=== PATIENT | female | born 1985 | race African-American/Black ===

== ENCOUNTER 2024-11-29 20:12 | Inpatient (IN) | payer OTHER ==
[2024-11-29 23:22] LABS: #Basophils 0.03 10x3/uL (0.0-0.2); #Eosinophils 0.16 10x3/uL (0.0-0.7); #Monocytes 0.40 10x3/uL (0.11-0.59); #Neutrophils 4.89 10x3/uL (1.40-6.50); %Basophils 0.4 % (0.0-1.0); %Eosinophils 2.0 % (0.0-10.0); %Lymphocytes 29.7 % (21.0-51.0); %Monocytes 5.1 % (0.0-10.0); %Neutrophils 62.5 % (42.0-75.0); Hematocrit 34.0 % (36.0-47.0); Hemoglobin 9.7 g/dL (12.0-16.0); Mean Corpuscular Hemoglobin 23.8 pg (27.0-31.0); Mean Corpuscular Volume 83.3 fL (78.0-98.0); Platelet Count 336 10x3/uL (130-400); Red Blood Cell (RBC) Count 4.08 mill/uL (4.20-5.40); White Blood Cell (WBC) Count 7.82 10x3/uL (4.8-10.8)
[2024-11-29 23:26] LABS: INR-International Normal Ratio 1.0; PTT 28.9 sec (22.9-36.1); Prothrombin Time 13.5 sec (12.0-14.7)
[2024-11-29 23:27] LABS: ALT (SGPT) 8 U/L (Less than 34); AST (SGOT) 40 U/L (11-34); Albumin 3.3 g/dL (3.1-4.5); Alkaline Phosphatase 52 U/L (40-110); Anion Gap 16 mmol/L (10-20); BUN (Urea Nitrogen) 9 mg/dL (7.0-18.7); Bilirubin, Total 0.2 mg/dL (0.3-1.2); Calc. Creatinine Clearance 0 mL/min (70-130); Calcium 8.5 mg/dL (7.8-10.44); Carbon Dioxide 23 mmol/L (22-29); Chloride 108 mmol/L (98-107); Globulin 4.1 g/dL (2.4-3.5); Glucose 90 mg/dL (70-105); Potassium 4.6 mmol/L (3.5-5.1); Sodium 142 mmol/L (136-145)
[2024-11-29 23:29] LABS: D-Dimer Test 0.51 mcg/mL (0.27-0.43)
[2024-11-30 00:17] LABS: Platelet Adequacy Comment Platelets Normal; Polychromasia SLIGHT = 2-3 cells HPF (0-2)
[2024-11-30] MEDS ORDERED: Acetaminophen 500 MG TAB ONE (00:17)
[2024-11-30] MEDS ORDERED: Ondansetron PF 4 MG/2 ML Vial ONE (00:18)
[2024-11-30] MEDS ORDERED: Acetaminophen 325 MG TAB PO PRN (01:30)
[2024-11-30] MEDS ORDERED: Ondansetron PF 4 MG/2 ML Vial IVP PRN (01:30)
[2024-11-30 04:27] LABS: #Basophils Less than 0.03 10x3/uL (0.0-0.2); #Eosinophils 0.15 10x3/uL (0.0-0.7); #Monocytes 0.36 10x3/uL (0.11-0.59); #Neutrophils 4.20 10x3/uL (1.40-6.50); %Basophils 0.3 % (0.0-1.0); %Eosinophils 2.1 % (0.0-10.0); %Lymphocytes 33.5 % (21.0-51.0); %Monocytes 5.0 % (0.0-10.0); %Neutrophils 59.0 % (42.0-75.0); Hematocrit 33.3 % (36.0-47.0); Hemoglobin 9.5 g/dL (12.0-16.0); Mean Corpuscular Hemoglobin 23.8 pg (27.0-31.0); Mean Corpuscular Volume 83.5 fL (78.0-98.0); Platelet Count 317 10x3/uL (130-400); Red Blood Cell (RBC) Count 3.99 mill/uL (4.20-5.40); White Blood Cell (WBC) Count 7.13 10x3/uL (4.8-10.8)
[2024-11-30 04:37] LABS: Anion Gap 13 mmol/L (10-20); BUN (Urea Nitrogen) 9 mg/dL (7.0-18.7); Calc. Creatinine Clearance 0 mL/min (70-130); Calcium 8.1 mg/dL (7.8-10.44); Carbon Dioxide 24 mmol/L (22-29); Cardiac Risk 3.8 (Less than 4.5); Chloride 109 mmol/L (98-107); Cholesterol 150 mg/dl (< 200 Desired); Glucose 92 mg/dL (70-105); HDL Cholesterol 39 mg/dL (>60 Neg Risk); LDL Cholesterol, Calculated 100 mg/dL; Potassium 3.5 mmol/L (3.5-5.1); Sodium 142 mmol/L (136-145); Triglycerides 57 mg/dL (Less than 150)
[2024-11-30 05:24] VITALS: BMI 64.0
[2024-11-30] MEDS ORDERED: Acetaminophen/Codeine 30-300mg Tablet ONE (08:11)
[2024-11-30] MEDS ORDERED: Enoxaparin 40 MG (0.4 mL) SYRINGE ONE (08:11)
[2024-11-30] MEDS ORDERED: Famotidine/PF 20 mg/2ml Vial ONE (08:12)
[2024-11-30] MEDS: Acetaminophen/Codeine 30-300mg Tablet PO PRN (08:14)
[2024-11-30] MEDS: Famotidine/PF 20 mg/2ml Vial SLOW IVP SCH (08:16)
[2024-11-30] MEDS: Enoxaparin 40 MG (0.4 mL) SYRINGE SC SCH (08:16)
[2024-12-01] MEDS: lamoTRIgine 25 MG TAB PO SCH (09:00)
[2024-12-01] MEDS: Divalproex Sodium 125 mg Sprinkle Capsule PO SCH (12:00)
[2024-12-01] MEDS: Ketorolac Tromethamine 30 MG (1 mL) VIAL IVP SCH (18:20)
[2024-12-02 05:41] LABS: Anion Gap 13 mmol/L (10-20); BUN (Urea Nitrogen) 11 mg/dL (7.0-18.7); Calc. Creatinine Clearance 365 mL/min (70-130); Calcium 8.5 mg/dL (7.8-10.44); Carbon Dioxide 27 mmol/L (22-29); Chloride 105 mmol/L (98-107); Glucose 89 mg/dL (70-105); Potassium 4.0 mmol/L (3.5-5.1); Sodium 141 mmol/L (136-145)
[2024-12-02 07:04] LABS: Hematocrit 33.9 % (36.0-47.0); Hemoglobin 9.9 g/dL (12.0-16.0); Mean Corpuscular Hemoglobin 23.9 pg (27.0-31.0); Mean Corpuscular Volume 81.7 fL (78.0-98.0); Platelet Count 301 10x3/uL (130-400); Red Blood Cell (RBC) Count 4.15 mill/uL (4.20-5.40); White Blood Cell (WBC) Count 5.44 10x3/uL (4.8-10.8)
[2024-12-02 07:31] LABS: #Basophils 0.03 10x3/uL (0.0-0.2); #Eosinophils 0.08 10x3/uL (0.0-0.7); #Monocytes 0.33 10x3/uL (0.11-0.59); #Neutrophils 3.52 10x3/uL (1.40-6.50); %Basophils 0.6 % (0.0-1.0); %Eosinophils 1.5 % (0.0-10.0); %Lymphocytes 27.2 % (21.0-51.0); %Monocytes 6.1 % (0.0-10.0); %Neutrophils 64.4 % (42.0-75.0)
[2024-12-02 07:40] VITALS: TEMP 98.1
[2024-12-02] MEDS: Colchicine 0.6 MG TAB PO SCH (09:46)
[2024-12-02] MEDS: Famotidine 20 MG TAB PO SCH (09:48)
[2024-12-02] MEDS: Ketorolac Tromethamine 30 MG (1 mL) VIAL IVP SCH (10:30)
[2024-12-02 11:26] VITALS: BP 147/84
== END 2024-12-02 14:14 | disposition home or self-care (01) | DRG 206 ==
LOC: ERS 20:12 → ERHOLD 11-30 01:24 → OBS 11-30 17:56 → OBSVTOIN 12-01 13:14
PROVIDERS: ADMIT Internal Medicine; ATTEND Hospitalist
DX: M94.0 Chondrocostal junction syndrome [Tietze] (principal); Z68.44 Body mass index [BMI] 60.0-69.9, adult; R56.9 Unspecified convulsions; J45.909 Unspecified asthma, uncomplicated; I11.0 Hypertensive heart disease with heart failure; I50.9 Heart failure, unspecified; Z88.8 Allergy status to other drugs, medicaments and biological substances; Z91.018 Allergy to other foods; E66.01 Morbid (severe) obesity due to excess calories; R07.89 Other chest pain; Z79.899 Other long term (current) drug therapy
CPT/HCPCS: 36415; 71045; 78451; 80048; 80053; 80061; 80164; 83036; 83605; 83880; 84443; 84484; 85025; 85379; 85610; 85730; 93005; 93306; 94660; 94760; 96372; 96374; 96375; 96376; A9540; G0378; J1308; J1650; J1885; J2270; J2405; J7620

== ENCOUNTER 2025-03-22 12:22 | Emergency (ER) | payer OTHER ==
[~2025-03-22 12:22] MED LIST: Iopamidol-370 76% 500 ML MDV (1 ML CHARGE) ONE
[2025-03-22 12:47] LABS: #Basophils 0.03 10x3/uL (0.0-0.2); #Eosinophils 0.11 10x3/uL (0.0-0.7); #Monocytes 0.30 10x3/uL (0.11-0.59); #Neutrophils 5.56 10x3/uL (1.40-6.50); %Basophils 0.4 % (0.0-1.0); %Eosinophils 1.4 % (0.0-10.0); %Lymphocytes 22.4 % (21.0-51.0); %Monocytes 3.9 % (0.0-10.0); %Neutrophils 71.6 % (42.0-75.0); Hematocrit 36.2 % (36.0-47.0); Hemoglobin 10.7 g/dL (12.0-16.0); Mean Corpuscular Hemoglobin 23.9 pg (27.0-31.0); Mean Corpuscular Volume 80.8 fL (78.0-98.0); Platelet Count 316 10x3/uL (130-400); Red Blood Cell (RBC) Count 4.48 mill/uL (4.20-5.40); White Blood Cell (WBC) Count 7.76 10x3/uL (4.8-10.8)
[2025-03-22 13:09] LABS: ALT (SGPT) 13 U/L (Less than 34); AST (SGOT) 22 U/L (11-34); Albumin 3.7 g/dL (3.1-4.5); Alkaline Phosphatase 65 U/L (40-110); Anion Gap 16 mmol/L (10-20); BUN (Urea Nitrogen) 11 mg/dL (7.0-18.7); Bilirubin, Total 0.4 mg/dL (0.3-1.2); Calc. Creatinine Clearance 0 mL/min (70-130); Calcium 8.9 mg/dL (7.8-10.44); Carbon Dioxide 24 mmol/L (22-29); Chloride 102 mmol/L (98-107); Globulin 3.8 g/dL (2.4-3.5); Glucose 88 mg/dL (70-105); Potassium 4.3 mmol/L (3.5-5.1); Sodium 138 mmol/L (136-145)
[2025-03-22] MEDS ORDERED: Acetaminophen 500 MG TAB ONE (13:11)
[2025-03-22] MEDS ORDERED: levETIRAcetam 500 MG (5 mL) VIAL ONE (13:12)
[2025-03-22 13:20] LABS: Magnesium 1.8 mg/dL (1.6-2.6)
[2025-03-22 13:21] LABS: BHCG - Serum Negative (NEGATIVE); Pregs Control Background? CLEAR/WHITE (CLR/WHITE); Pregs Control Bar Appear? YES (CONTROL BAR)
[2025-03-22] MEDS ORDERED: diphenhydrAMINE 50 MG/ML VIAL ONE (15:23)
[2025-03-22] MEDS ORDERED: Famotidine/PF 20 mg/2ml Vial ONE (15:24)
== END 2025-03-22 17:45 | disposition home or self-care (01) ==
LOC: ERS 12:22
DX: R55 Syncope and collapse (principal); R51.9 Headache, unspecified; R07.9 Chest pain, unspecified; I50.9 Heart failure, unspecified; E66.9 Obesity, unspecified; W19.XXXA Unspecified fall, initial encounter; Y92.22 Religious institution as the place of occurrence of the external cause
CPT/HCPCS: 70450; 71275; 72125; 80053; 83735; 84484; 84703; 85025; 85379; 93005; 96374; 96375; J1200; J1308; J1953; J2919; Q9967